=== PATIENT | female | born 1985 | race Caucasian/White ===

== ENCOUNTER 2021-07-23 00:08 | Inpatient (IN) | payer OTHER ==
[~2021-07-23] VITALS: Ht 175.3 cm; Wt 139.3 kg
[2021-07-23 01:51] LABS: HCT 37.4 % (37.0-47.0); HGB 12.3 g/dl (12.5-16.0); MCH 26.5 pg (25.0-31.0); MCHC 32.9 g/dL (32.0-36.0); MCV 80.4 fL (78.0-100.0); MPV 10.8 fL (6.0-9.5); RBC 4.65 M/uL (4.20-5.40); RDW 13.2 % (11.5-14.0); WBC 14.5 K/uL (4.0-10.5)
[2021-07-23 01:55] LABS: BILIRUBIN NEGATIVE (NEGATIVE); BLOOD NEGATIVE Ery/uL (NEGATIVE); CLARITY CLEAR (CLEAR); COLOR YELLOW (YELLOW); GLUCOSE (U) 3+ mg/dL (NORMAL); LEUKOCYTES NEGATIVE Leu/uL (NEGATIVE); NITRITE NEGATIVE (NEGATIVE); PROTEIN NEGATIVE (NEGATIVE); UROBILINOGEN 0.2 mg/dL (0.2-1.0)
[2021-07-23 01:59] LABS: AMPHETAMINES NEGATIVE (NEGATIVE); BARBITURATES NEGATIVE (NEGATIVE); ECSTASY (MDMA) NEGATIVE (NEGATIVE); MARIJUANA (THC) POSITIVE (NEGATIVE); METHADONE NEGATIVE (NEGATIVE); OPIATES NEGATIVE (NEGATIVE); OXYCODONE NEGATIVE (NEGATIVE)
[2021-07-23 02:07] LABS: PROTEIN:CREATININE 0.31 RATIO; URINE CREATININE 56.45 mg/dL (29.00-226.00); URINE TOTAL PROTEIN-RANDOM 17.5 mg/dL (<11.9)
[2021-07-23 02:09] LABS: ALBUMIN 2.4 g/dL (3.4-5.0); BILIRUBIN - TOTAL 0.2 mg/dL (0.2-1.0); BUN/CREAT RATIO (CALC) 20.5 RATIO; CREATININE 0.44 mg/dL (0.51-0.95); GLOBULIN (CALCULATION) 4.6 g/dL; POTASSIUM 3.4 mmol/L (3.5-5.1); URIC ACID 4.9 mg/dL (2.6-6.2)
[2021-07-24 07:16] LABS: HCT 34.4 % (37.0-47.0); MCH 26.3 pg (25.0-31.0); MCV 82.1 fL (78.0-100.0); MPV 10.7 fL (6.0-9.5); RBC 4.19 M/uL (4.20-5.40); RDW 13.6 % (11.5-14.0); WBC 13.4 K/uL (4.0-10.5)
--- NOTE | 2021-07-25 08:08 | NUR ---
PT TESTED POSITIVE FOR THC; PT SAID IT WAS LEGAL IN [place] WHERE SHE USE TO LIVE AND SHE RECENTLY MOVED HERE FROM THERE. SHE DENIES HAVING ANY ADDICTION OR PROBLEMS WITH IT . SHE DENIES IT EFFECTING HER DAILY LIFE. LIST OF AA AND /OR NA MEETINGS GIVEN; HANDOUT "IS AA FOR YOU" GIVEN [facility] OUTPATIENT COUNSELING SERVICES COMMUNICARE; SEVEN [facility] ETC GIVEN CRISIS HOTLINE NUMBER AND LIST OF TREATMENT PROGRAMS ALL WAS GIVEN TO HER LEFT COPIES ON HER TABLE. SHE DENIES NEEDING ANY OF THE PAPERWORK BUT SAID I COULD LEAVE IT IN THE ROOM WITH HER . MOM HAD BABY ON CHEST GENTLY TOUCHING AND HOLDING HER WHEN I ENTERED ROOM, SHE SMILES DOWN AT BABY WE TALK. I ALSO SPOKE TO HER ABOUT QUESTIONS OB NURSE SAID SHE WANTED FINANCIAL HELP WITH BILL-PT WAS AN ELECTIVE INDUCTION AND INSURANCE DID NOT REQUIRE A PRIOR AUTH BUT I DID GIVE HER [facility] PHONE WRITTEN DOWN AND TOLD HER TO ASK FOR THE BILING OR FINACIAL OFFICES WITH ANY SPECIFIC QUESTIONS SHE MAY HAVE. SHE SAID SHE WAS MAINLY CONCERNED WITH GETTING BABY ON HER INSURANCE- I INSTRUCTED HER SHE HAD AN ALLOTED TIME FRAME TO CALL AND GET BABY ADDED TO INSURANCE AND TO CALL THE NUMBER ON THE BACK OF HER CARD-SHE VERBALIZED UNDERSTANDING AND SAID SHE WOULD CALL AND GET THAT ADDED FOR THE BABY.
== END 2021-07-25 13:50 | disposition home or self-care (01) | DRG 807 ==
LOC: FOB 00:08
PROVIDERS: ADMIT Obstetrics & Gynecology
PROC: 10E0XZZ Delivery of Products of Conception, External Approach (ICD-10-PCS; principal; 2021-07-23)
PROC: 0HQ9XZZ Repair Perineum Skin, External Approach (ICD-10-PCS; 2021-07-23)
PROC: 0UQMXZZ Repair Vulva, External Approach (ICD-10-PCS; 2021-07-23)
DX: O14.04 Mild to moderate pre-eclampsia, complicating childbirth (principal); Z37.0 Single live birth; Z3A.37 37 weeks gestation of pregnancy; O99.214 Obesity complicating childbirth; O99.324 Drug use complicating childbirth; F12.90 Cannabis use, unspecified, uncomplicated; O24.429 Gestational diabetes mellitus in childbirth, unspecified control; O70.0 First degree perineal laceration during delivery; O71.82 Other specified trauma to perineum and vulva; Z86.16 Personal history of COVID-19
CPT/HCPCS: 36415; 80053; 80305; 81003; 82009; 82570; 82962; 83036; 83615; 84156; 84550; 86850; 86900; 86901; J2001; J2405; J7120